=== PATIENT | male | born 1950 | race Caucasian/White ===

== ENCOUNTER → 2016-08-05 | Day surgery (SDC) | payer OTHER ==
[2016-07-29 14:07] VITALS: BMI 25.3
[~2016-08-05] MED LIST: ALPRAZolam 0.25 MG TAB PO PRN; ALPRAZolam 0.5 MG TAB PO PRN; AMLODIPINE BESYLATE PO SCH; ASPIRIN 325 MG TAB PO STA; ASPIRIN 81 MG CHEW PO SCH; ATORVASTATIN 80 MG TAB PO STA; BENAZEPRIL PO SCH; DIAZEPAM 20 MG PO SCH; DOXAZOSIN 1 MG TAB PO SCH; HEPARIN SODIUM 1,000 UNIT/ML VIAL IV ONE; IOHEXOL 350 MG/ML 125ML BOTTLE INJ ONE; LEVOTHYROXINE 25 MCG TAB PO SCH; LIDOCAINE 2% INJ 20 MG/ML SQ ONE; NITROGLYCERIN SL TABS 0.4 MG TAB SUBLINGUAL PRN; RX INFO: IV CONTRAST WAS GIVEN 1 EACH MISC MISCELLANE PRN; SODIUM CHLORIDE 0.9% 1,000 ML IV SCH; SODIUM CHLORIDE 0.9% 1,000 ML in EMPTY BAG 1 BAG IV ONE; TAMSULOSIN 0.4 MG CAP.ER.24H PO SCH; VERAPAMIL SYRINGE (5 MG/10 ML) INTRAARTER ONE; fentaNYL (PF) 50 MCG/ML 2 ML AMP IV ONE; oxyCODONE-APAP 10-325MG 1 EACH TAB PO PRN
[2016-08-05 06:21] VITALS: RESP 18
[2016-08-05 06:34] LABS: Basophils % (A) 0 %; CH 33.3; CHCM 34.7; Eosinophils # (A) 0.1 k/uL (0-0.7); Eosinophils % (A) 1 %; HCT 41.3 % (39.0-53.0); HDW 2.53; HGB 14.2 gm/dL (13.0-17.5); Luc # (Auto) 0.22; Luc % (Auto) 3; Lymphocytes # (A) 2.1 k/uL (1.0-4.8); Lymphocytes % (A) 26 %; MCH 33.2 pg (25.0-35.0); MCHC 34.4 g/dL (31.0-37.0); MCV 96.6 fL (80.0-100.0); Mean Platelet Volume 6.9; Monocytes # (A) 0.6 k/uL (0-1.0); Monocytes % (A) 7 %; Neutrophils # (A) 5.2 k/uL (1.3-7.7); Neutrophils % (A) 63 %; RBC 4.28 m/uL (4.30-5.90); RDW 13.1 % (11.5-15.5); WBC 8.3 k/uL (3.8-10.6)
[2016-08-05 06:44] LABS: Anion Gap 8 mmol/L; Blood Urea Nitrogen 24 mg/dL (9-20); Calcium 9.7 mg/dL (8.4-10.2); Carbon Dioxide 23 mmol/L (22-30); Chloride 109 mmol/L (98-107); Glucose 90 mg/dL (74-99); Non-African American GFR(MDRD) >60 (>60 ml/min/1.73 sqM); Potassium 4.2 mmol/L (3.5-5.1); Sodium 140 mmol/L (137-145)
--- NOTE | 2016-08-05 08:03 | CC ---
DATE OF SERVICE: Mr. Cuello is a 66-year-old male with known history of hypertension, family history of coronary artery disease, who recently underwent myocardial perfusion imaging when he had runs of non-sustained VT and he had a inferolateral wall defect. In view of that, recommendation was made regarding cardiac catheterization. The procedure as well as the risks and complications were discussed with the patient who is in full understanding and agreement. PROCEDURE: The patient was brought to the stores laborer in a fasting semi-sedated state after receiving fentanyl and Benadryl and achieving moderate conscious sedation state. Using Xylocaine anesthesia and Seldinger technique, a 6 Stateless sheath was introduced in the right radial artery. Selective right and left coronary angiography was performed using 5 Stateless, 3-1/2 Bend right and left Renetta catheters. Multiple views of the coronary arteries including hemiaxial views were obtained. Following that, a 5 Stateless tight pigtail catheter was introduced in the left ventricle and pressures were calculated. Following that, catheter was removed. Images were reviewed. Of note, the patient received 4000 units of intravenous heparin as well as intra-arterial verapamil. FINDINGS: FLUOROSCOPY: There is calcification involving the 3 coronary arteries. LEFT MAIN: This is a short-sized vessel bifurcating into left circumflex, left anterior descending artery. Left main coronary artery is without any evidence of high-grade stenosis. LEFT ANTERIOR DESCENDING ARTERY: This is a large-size vessel reaching to the apex with a wrap around apex segment, giving rise to a proximal diagonal branch. The left anterior descending artery has mild intimal disease in the mid segment of 10% to 20% without any evidence of high-grade stenosis. LEFT CIRCUMFLEX: This is a nondominant vessel, giving rise to 2 obtuse marginal branch of large caliber. The left circumflex as well as branches have no evidence of obstructive coronary artery disease. RIGHT CORONARY ARTERY: This is a large dominant vessel, bifurcating distally to PDA and posterolateral segment and branches. The right coronary artery has mild intimal disease in the proximal and mid segment of 20% without any evidence of high-grade stenosis. LEFT VENTRICULOGRAM: Left ventriculogram was not performed. HEMODYNAMICS: There was no gradient across the aortic valve. The left ventricular end-diastolic pressure was 12 mmHg. CONCLUSION: 1. Calcified coronary arteries. 2. Mild coronary artery disease involving the left anterior descending artery and right coronary artery. 3. Normal left ventricular end-diastolic pressure. RECOMMENDATIONS: In view of finding anatomy, I recommend to continue medical therapy with aggressive coronary risk modifications that have been initiated. Those findings and recommendations were discussed with the patient and his family and they are in full understanding and agreement. DURATION OF PROCEDURE: 16 minutes.
--- NOTE | 2016-08-05 08:06 | LTR ---
August 05, 2016 VANDANA CUI DO RE: CuateMarvin Dear Dr. Cui: I had the opportunity to perform cardiac catheterization on Mr. Cuello at [facility] on the july and a full copy of the procedure note will be forwarded to you. In brief, he was found to have mild intimal disease without any evidence of high-grade stenosis and based on those findings, I recommend to continue medical therapy with aggressive coronary risk modification has been initiated. I thank you again for allowing me the opportunity to participate in his care. Please feel free to call for any questions. Sincerely yours, SUNNY LO MD
[2016-08-05 13:23] VITALS: BP 119/58; PULSE 56
[2016-08-05 14:09] VITALS: TEMP 98
== END | disposition home or self-care (01) ==
LOC: CATHCVL 06:02
PROVIDERS: ATTEND Internal Medicine Interventional Cardiology
DX: I25.10 Atherosclerotic heart disease of native coronary artery without angina pectoris (principal); I25.84 Coronary atherosclerosis due to calcified coronary lesion; I10 Essential (primary) hypertension; Z82.49 Family history of ischemic heart disease and other diseases of the circulatory system; I49.3 Ventricular premature depolarization; I35.1 Nonrheumatic aortic (valve) insufficiency; Z79.82 Long term (current) use of aspirin; Z79.899 Other long term (current) drug therapy; Z88.5 Allergy status to narcotic agent
CPT/HCPCS: 93458; 80048; 85025; 99152; C1894; C1769; J2001; J3010; J1644; Q9967

== ENCOUNTER → 2017-08-12 | Outpatient (CLI) | payer MEDICARE, OTHER ==
--- NOTE | 2017-08-12 09:03 | US ---
EXAMINATION TYPE: US duplex aorta DATE OF EXAM: 08/12/2017 COMPARISON: NONE CLINICAL HISTORY: I71.4 Abdominal Aortic Aneurysm. Screening EXAM MEASUREMENTS: Abdominal Aorta: Proximal: 2.1 x 2.1cm Mid: 1.9 x 1.9cm Distal: 2.0 x 2.1cm Bifurcation: RT: 1.0 x 0.9cm LT: 1.0 x 0.9cm Visualized portions show no evidence of AAA at this time. Calcifications noted. *Incidental finding: multiple cystic areas within liver, largest = 4.9 x 4.5 x 5.3cm IMPRESSION: 1. Ultrasound is negative for screening for abdominal aortic aneurysm. Minimal fusiform prominence di stal abdominal aorta compared to the mid abdominal aorta is noted. 2. Incidental note is made of simple appearing cysts within the liver.
--- NOTE | 2017-08-12 09:04 | US ---
EXAMINATION TYPE: US carotid duplex BILAT DATE OF EXAM: 08/12/2017 COMPARISON: NONE CLINICAL HISTORY: I73.9 Peripheral. Peripheral vascular disease EXAM MEASUREMENTS: RIGHT: Peak Systolic Velocity (PSV) cm/sec ----- Right CCA: 95.2 ----- Right ICA: 111.7 ----- Right ECA: 110.6 ICA/CCA ratio: 1.2 RIGHT: End Diastole cm/sec ----- Right CCA: 22.6 ----- Right ICA: 21.5 ----- Right ECA: 19.3 LEFT: Peak Systolic Velocity (PSV) cm/sec ----- Left CCA: 109.5 ----- Left ICA: 89.7 ----- Left ECA: 94.1 ICA/CCA ratio: 0.8 LEFT: End Diastole cm/sec ----- Left CCA: 28.0 ----- Left ICA: 16.0 ----- Left ECA: 21.5 VERTEBRALS (direction of flow): Right Vertebral: Antegrade Left Vertebral: Antegrade Rhythm: Normal Mild plaque bilateral bifurcations. No evidence of significant stenosis Mild intimal thickening is present bilaterally. IMPRESSION: 1. Atheromatous plaquing without significant flow-limiting stenosis. Criteria for Assigning % of Stenosis / Diameter reduction (Estimation based on the indirect measurements of the internal carotid artery velocities (ICA PSV). 1. Normal (no stenosis)=ICA PSV < 125 cm/s: ratio < 2.0: ICA EDV<40 cm/s. 2. Less than 50% stenosis=ICA PSV < 125 cm/s: ratio < 2.0: ICA EDV<40 cm/s. 3. 50 to 69% stenosis=ICA PSV of 125 to 230 cm/s: ration 2.0 ? 4.0: ICA EDV 40-100 cm/s. 4. Greater than 70% stenosis to near occlusion= ICA PSV > 230 cm/s: ratio > 4.0: ICA EDV > 100 cm/s. 5. Near occlusion= ICA PSV velocities may be low or undetectable: variable ratio and ICA EDV. 6. Total occlusion=unable to detect flow.
== END | disposition home or self-care (01) ==
LOC: RADUSWWP 08:07
PROVIDERS: ATTEND Family Medicine
DX: I65.23 Occlusion and stenosis of bilateral carotid arteries (principal); I71.4 Abdominal aortic aneurysm, without rupture
CPT/HCPCS: 93880; 93979

== ENCOUNTER → 2018-02-13 | Outpatient (CLI) | payer MEDICARE, OTHER ==
[~2018-02-13] MED LIST changes: -ALPRAZolam 0.25 MG TAB PO PRN; -ALPRAZolam 0.5 MG TAB PO PRN; -AMLODIPINE BESYLATE PO SCH; -ASPIRIN 325 MG TAB PO STA; -ASPIRIN 81 MG CHEW PO SCH; -ATORVASTATIN 80 MG TAB PO STA; -BENAZEPRIL PO SCH; -DIAZEPAM 20 MG PO SCH; -DOXAZOSIN 1 MG TAB PO SCH; -HEPARIN SODIUM 1,000 UNIT/ML VIAL IV ONE; -IOHEXOL 350 MG/ML 125ML BOTTLE INJ ONE; -LEVOTHYROXINE 25 MCG TAB PO SCH; -LIDOCAINE 2% INJ 20 MG/ML SQ ONE; -NITROGLYCERIN SL TABS 0.4 MG TAB SUBLINGUAL PRN; -RX INFO: IV CONTRAST WAS GIVEN 1 EACH MISC MISCELLANE PRN; -SODIUM CHLORIDE 0.9% 1,000 ML IV SCH; -SODIUM CHLORIDE 0.9% 1,000 ML in EMPTY BAG 1 BAG IV ONE; +SODIUM CHLORIDE 0.9% 500 ML 500 ML in EMPTY BAG 1 BAG IV PRN; -TAMSULOSIN 0.4 MG CAP.ER.24H PO SCH; -VERAPAMIL SYRINGE (5 MG/10 ML) INTRAARTER ONE; +ZOLEDRONIC ACID 5 MG in SODIUM CHLORIDE 0.9% 100 ML IV ONE; -fentaNYL (PF) 50 MCG/ML 2 ML AMP IV ONE; -oxyCODONE-APAP 10-325MG 1 EACH TAB PO PRN
[2018-02-13 10:00] VITALS: BP 148/73; PULSE 68; RESP 16; TEMP 97.8
== END ==
LOC: PROCWHC3 09:46
PROVIDERS: ATTEND Family Medicine
DX: M81.0 Age-related osteoporosis without current pathological fracture (principal)
CPT/HCPCS: 96365; J3489

== ENCOUNTER → 2019-05-21 | Outpatient (CLI) | payer MEDICARE, OTHER ==
--- NOTE | 2019-05-21 09:59 | MR ---
EXAMINATION TYPE: MR ankle LT wo con DATE OF EXAM: 05/21/2019 COMPARISON: Left ankle x-ray September 18, 2018 HISTORY: Left ankle pain, unspecified injury of the Achilles tendon. Standard multiplanar, multisequence MRI departmental protocol Multiplanar, multisequence images of the left ankle were acquired. Diffusion weighted imaging was per formed. FINDINGS: There is heterogeneous roughly 4 cm proximal to the insertion on the posterior superior alysia caneus. There is thickening up to 12 mm AP diameter at this level. There is however intact tendon fib ers seen through the calcaneus without gap. Visualized portion of plantar fascia is within normal limits. The peroneus tendons are intact with some areas of increased signal along course of the peroneus brev is tendon. No full-thickness tear is evident or surrounding fluid is evident. The flexor tendons leti g posterior medial aspect of the ankle are intact. Some fluid surrounds the posterior tibial tendon a nterior calcaneal level for reference axial images 15 through 17. Extensor tendons anteriorly are int act. The anterior tibiofibular and anterior talofibular ligaments are intact. The medial deltoid ligament is intact. Ankle mortise symmetry is preserved. Slightly more prominent fat posterior medial ankle axial image 6 with local mass effect adjacent to t he inferior anterior aspect calcaneus is suspicious for focal subcutaneous lipoma measuring 3.5 x 1.6 cm axial image 6. [id number] diffuse subcutaneous edema slightly more prominent laterally versus medially without soft tissue swelling. Some edema extends into the sinus tarsi. Bone marrow signal intensity fairly w ell preserved without suspicious edema. Lisfranc joints are maintained. Mild to moderate narrowing wi th mild spurring throughout the hindfoot and midfoot articulations is present. IMPRESSION: 1. Partial tear of the Achilles tendon as detailed above. 2. Posterior tibial tendon tenosynovitis. 3. Tendinosis of the peroneus brevis tendon without tear. 4. Mild to moderate hindfoot and midfoot osteoarthropathy. Mild to moderate diffuse subcutaneous lluvia a without significant soft tissue swelling. 5. Probable 3.5 cm medial lipoma with local mass effect dorsal medial anterior hindfoot level.
== END | disposition home or self-care (01) ==
LOC: RADMRIMAIN 07:34
PROVIDERS: ATTEND Physician Assistant
DX: S86.012A Strain of left Achilles tendon, initial encounter (principal); M65.862 Other synovitis and tenosynovitis, left lower leg; M67.874 Other specified disorders of tendon, left ankle and foot; M19.072 Primary osteoarthritis, left ankle and foot

== ENCOUNTER → 2019-09-07 | Outpatient (CLI) | payer MEDICARE, OTHER | END | disposition home or self-care (01) | LOC: LABWHC1 10:03 | PROVIDERS: ATTEND Family Medicine | DX: R05 Cough (principal); R43.8 Other disturbances of smell and taste ==

== ENCOUNTER 2020-09-02 07:25 | Day surgery (SDC) | payer MEDICARE, OTHER ==
[2020-08-29 09:00] VITALS: BMI 25.3
[~2020-09-02 07:25] MED LIST changes: +LIDOCAINE 1% (10MG/ML) FOR IV START INTRADERMA PRN; -SODIUM CHLORIDE 0.9% 500 ML 500 ML in EMPTY BAG 1 BAG IV PRN; -ZOLEDRONIC ACID 5 MG in SODIUM CHLORIDE 0.9% 100 ML IV ONE
[2020-09-02 08:16] VITALS: RESP 16; TEMP 98.3
[2020-09-02] MEDS: LACTATED RINGERS 1,000 ML IV SCH ×2 (08:19→09:00)
[2020-09-02] MEDS ORDERED: PROPOFOL 10 MG/ML 20 ML VIAL IV ONE (09:02)
--- NOTE | 2020-09-02 09:05 | P.GSHP ---
History of Present Illness H&P Date: 09/02/20 Chief Complaint: Colon cancer screening patient here today for colonoscopy. Patient with personal history of colon polyps. Last colonoscopy 3-5 years ago with poor prep. No bowel complaints. No family history of colon cancer. Past Medical History Past Medical History: Hypertension, Osteoarthritis (OA), Prostate Disorder, Thyroid Disorder, Vascular Disorder Additional Past Medical History / Comment(s): chronic back pain, PAD., BPH., Hemorrhoids., states he sprained his ankle and has a splint and angel wrap on. History of Any Multi-Drug Resistant Organisms: None Reported Past Surgical History: Back Surgery, Cholecystectomy, Heart Catheterization, Hernia Repair, Orthopedic Surgery Additional Past Surgical History / Comment(s): left eye removed, evans knees arthroscopy, evans shoulder sx Past Anesthesia/Blood Transfusion Reactions: Previous Problems w/ Anesthesia Additional Past Anesthesia/Blood Transfusion Reaction / Comment(s): states has woke up during surgery Past Psychological History: No Psychological Hx Reported Smoking Status: Former smoker Past Alcohol Use History: None Reported Additional Past Alcohol Use History / Comment(s): smoked less than 1/2 ppd in the Past Drug Use History: None Reported - Past Family History Brother(s) Family Medical History: Cancer Additional Family Medical History / Comment(s): brain cancer, prostate cancer Father Additional Family Medical History / Comment(s): pts grandfather = colon cancer Mother Family Medical History: Renal Disease Medications and Allergies Home Medications Medication Instructions Recorded Confirmed Type Aspirin [Adult Low Dose Aspirin EC] 81 mg PO DAILY 07/29/16 09/02/20 History Diazepam [Valium] 10 mg PO BID 07/29/16 09/02/20 History Levothyroxine Sodium [Synthroid] 12.5 mcg PO DAILY 07/29/16 09/02/20 History Tamsulosin HCl [Flomax] 0.4 mg PO DAILY 07/29/16 09/02/20 History amLODIPine BESYLATE/BENAZEPRIL 1 cap PO DAILY 07/29/16 09/02/20 History [Lotrel 10-40 mg Capsule] Atorvastatin [Lipitor] 40 mg PO DAILY 08/29/20 09/02/20 History Allergies Allergy/AdvReac Type Severity Reaction Status Date / Time morphine Allergy Itching Verified 08/29/20 08:37 Surgical - Exam Vital Signs Temp Pulse Resp BP Pulse Ox 98.3 F 77 16 146/79 96 09/02/20 08:14 09/02/20 08:14 09/02/20 08:14 09/02/20 08:14 09/02/20 08:14 Physical exam: General: Well-developed, well-nourished HEENT: Normocephalic, sclerae nonicteric Abdomen: Nontender, nondistended Extremities: No edema Neuro: Alert and oriented Assessment and Plan (1) Colon cancer screening Narrative/Plan: Will proceed with colonoscopy at this time Current Visit: Yes Status: Acute Code(s): Z12.11 - ENCOUNTER FOR SCREENING FOR MALIGNANT NEOPLASM OF COLON SNOMED Code(s): 291019310
--- NOTE | 2020-09-02 09:29 | P.PCN ---
Date of Procedure: 09/02/20 Procedure(s) Performed: PREOPERATIVE DIAGNOSIS: Colon cancer screening, history of polyps POSTOPERATIVE DIAGNOSIS: Multiple ascending colon polyps, diverticulosis PROCEDURE: Colonoscopy with snare polypectomy and clip placement ANESTHESIA: MAC SURGEON: Praveen Craven M.D. SPECIMENS: Multiple ascending colon polyps ENDOSCOPIC PROCEDURE: The patient was placed on the endoscopy table in the left decubitus position. The Olympus colonoscope was inserted into the anus and passed under direct visualization to the base of the cecum. The appendiceal orifice was visualized. From that point the scope was slowly withdrawn inspecting all surfaces carefully. There were no neoplastic inflammatory or polypoid lesions at the base of the cecum. In the ascending colon there were 5 polyps noted. These were all removed using the snare with cautery technique. 2 of these were removed in a piecemeal fashion. The remainder of the transverse descending sigmoid and rectum was free of any neoplastic inflammatory or polypoid lesions. The patient's prep was still slightly suboptimal. The patient had mild scattered diverticulosis. Digital rectal examination was normal. The patient was taken to the recovery room in stable condition per anesthesia guidelines. RECOMMENDATIONS: Resume diet. Await biopsy results. Will require short-term follow-up colonoscopy 2 years. Will need 2 day prep.
[2020-09-02 09:46] VITALS: BP 149/96; PULSE 65
== END 2020-09-02 10:10 | disposition home or self-care (01) ==
LOC: ORWHC2ENDO 07:25
PROVIDERS: ATTEND Surgery
DX: Z12.11 Encounter for screening for malignant neoplasm of colon (principal); D12.2 Benign neoplasm of ascending colon; K57.30 Diverticulosis of large intestine without perforation or abscess without bleeding; Z86.010 Personal history of colon polyps; I10 Essential (primary) hypertension; M19.90 Unspecified osteoarthritis, unspecified site; E07.9 Disorder of thyroid, unspecified; N40.0 Benign prostatic hyperplasia without lower urinary tract symptoms; I73.9 Peripheral vascular disease, unspecified; G89.29 Other chronic pain; R52 Pain, unspecified; K64.9 Unspecified hemorrhoids; S93.409D Sprain of unspecified ligament of unspecified ankle, subsequent encounter; Z90.49 Acquired absence of other specified parts of digestive tract; Z90.01 Acquired absence of eye; Z98.890 Other specified postprocedural states; Z87.891 Personal history of nicotine dependence; Z80.42 Family history of malignant neoplasm of prostate; Z80.8 Family history of malignant neoplasm of other organs or systems; Z80.0 Family history of malignant neoplasm of digestive organs; Z84.1 Family history of disorders of kidney and ureter; Z79.82 Long term (current) use of aspirin; Z79.890 Hormone replacement therapy; Z79.899 Other long term (current) drug therapy; Z88.5 Allergy status to narcotic agent
CPT/HCPCS: 88305; 45385; J2704; 45382

== ENCOUNTER → 2021-05-01 | Outpatient (CLI) | payer MEDICARE, OTHER ==
--- NOTE | 2021-05-01 18:03 | ECHOF ---
Referral Reason:I35.1 MEASUREMENTS -------- HEIGHT: 170.2 cm WEIGHT: 71.7 kg BP: RVIDd: 3.3 cm (< 3.3) IVSd: 1.2 cm (0.6 - 1.1) LVIDd: 4.7 cm (3.9 - 5.3) LVPWd: 1.3 cm (0.6 - 1.1) IVSs: 1.5 cm LVIDs: 3.1 cm LVPWs: 2.3 cm LAESV Index (A-L): 33.94 ml/m Ao Diam: 3.1 cm (2.0 - 3.7) AV Cusp: 2.0 cm (1.5 - 2.6) LA Diam: 4.5 cm (2.7 - 3.8) MV EXCURSION: 18.048 mm (> 18.000) MV EF SLOPE: 39 mm/s (70 - 150) EPSS: 0.2 cm MV E Chris: 0.40 m/s MV DecT: 472 ms MV A Chris: 0.61 m/s MV E/A Ratio: 0.66 AV maxP.75 mmHg AV meanP.91 mmHg AR PHT: 620 ms RAP: 5.00 mmHg RVSP: 30.63 mmHg FINDINGS -------- Sinus rhythm. This was a technically good study. The left ventricular size is normal. There is mild concentric left ventricular hypertrophy. Overa ll left ventricular systolic function is low-normal with, an EF between 50 - 55 %. The right ventricle is normal in size. LA is midly dilated 29-33ml/m2. The right atrial size is normal. There is mild aortic regurgitation. There is mild aortic stenosis present. Peak/mean gradient acr oss the Aortic Valve is 23.75mmHg / 9.91mmHg. Mild mitral regurgitation is present. Mild tricuspid regurgitation present. Right ventricular systolic pressure is normal at < 35 mmHg. There is no pulmonic regurgitation present. The aortic root size is normal. There is a trivial pericardial effusion present. Possible cyst in the liver CONCLUSIONS -------- 1. The left ventricular size is normal. 2. There is mild concentric left ventricular hypertrophy. 3. Overall left ventricular systolic function is low-normal with, an EF between 50 - 55 %. 4. The right ventricle is normal in size. 5. LA is midly dilated 29-33ml/m2. 6. The right atrial size is normal. 7. There is mild aortic regurgitation. 8. There is mild aortic stenosis present. 9. Peak/mean gradient across the Aortic Valve is 23.75mmHg / 9.91mmHg. 10. Mild mitral regurgitation is present. 11. Mild tricuspid regurgitation present. 12. The aortic root size is normal. 13. There is a trivial pericardial effusion present. 14. Possible cyst in the liver MANAGER GOLF: Ayala Tam RDCS
== END | disposition home or self-care (01) ==
LOC: RADECHMAIN 11:44
PROVIDERS: ATTEND Family Medicine
DX: I08.3 Combined rheumatic disorders of mitral, aortic and tricuspid valves (principal)
CPT/HCPCS: 93306

== ENCOUNTER → 2021-07-09 | Outpatient (CLI) | payer MEDICARE, OTHER ==
--- NOTE | 2021-07-09 12:19 | US ---
EXAMINATION TYPE: US venous doppler duplex LE DATE OF EXAM: 07/09/2021 11:49 AM COMPARISON: NONE CLINICAL HISTORY: R79.1 ABNORMAL COAGULATION PROFILE. History of hip replacement. abn labs, patients brother of clot and patient asked for testing to be done on him. SIDE PERFORMED: bilateral TECHNIQUE: The lower extremity deep venous system is examined utilizing real time linear array sonog lilo with graded compression, doppler sonography and color-flow sonography. VESSELS IMAGED: Common Femoral Vein Deep Femoral Vein Greater Saphenous Vein * Femoral Vein Popliteal Vein Small Saphenous Vein * Proximal Calf Veins (* superficial vessels) There is normal flow, compressibility, vascular waveforms. Right Leg: Negative for DVT Left Leg: Negative for DVT IMPRESSION: No evident deep venous thrombosis within the lower extremities from the level of the knee centrally
== END | disposition home or self-care (01) ==
LOC: RADUSWWP 11:23
PROVIDERS: ATTEND Family Medicine
DX: R79.1 Abnormal coagulation profile (principal); Z96.649 Presence of unspecified artificial hip joint
CPT/HCPCS: 93970

== ENCOUNTER 2021-08-04 10:35 | Emergency (ER) | payer MEDICARE, OTHER ==
[2021-08-04 11:04] VITALS: BP 131/72; PULSE 70; RESP 16; TEMP 97.8
[2021-08-04] MEDS ORDERED: OXYMETAZOLINE 0.05% NASL SPRAY 1 SPRAY BOTTLE NASAL STA (11:23)
--- NOTE | 2021-08-04 11:42 | ED ---
General Adult HPI - General Chief complaint: ENT Stated complaint: Nosebleed Time Seen by Provider: 08/04/21 11:11 Source: patient Mode of arrival: ambulatory Limitations: no limitations - History of Present Illness Initial comments: This 71-year-old male presents to the emergency department with on and off right sided nosebleed 5 days. Patient states he has had nosebleed 1-2 times a day for the last 5 days that last less than 10 minutes each. Patient denies any history of nosebleeds in his past. Patient states the nosebleed comes from the right nostril. Patient states he went to see his primary care provider yesterday afternoon where he used a cauterization stick for the nosebleed. Patient states he does have cauterization sticks at home which she did use one time this morning to stop the nosebleed, patient states that didn't work. Patient denies being on any blood thinners. Patient states he does have high blood pressure but states it has been in the 120s to 130s over 70s and 80s this week which is his baseline. Patient states last nosebleed was earlier this morning which stopped on its own after about 5 minutes. Patient states he does have an appointment with Dr. Bernal on August 19. Patient denies any hemoptysis, coughing or vomiting up blood. He denies any chest pain, shortness of breath, abdominal pain, nausea, vomiting, change in bowel or bladder, change in appetite, lightheadedness, dizziness, fever, change in vision, rash. - Related Data Home Medications Medication Instructions Recorded Confirmed Aspirin [Adult Low Dose Aspirin EC] 81 mg PO DAILY 07/29/16 08/04/21 Diazepam [Valium] 10 mg PO QID PRN 07/29/16 08/04/21 Levothyroxine Sodium [Synthroid] 12.5 mcg PO DAILY 07/29/16 08/04/21 Tamsulosin HCl [Flomax] 0.4 mg PO DAILY 07/29/16 08/04/21 amLODIPine BESYLATE/BENAZEPRIL 1 cap PO DAILY 07/29/16 08/04/21 [Lotrel 10-40 mg Capsule] Atorvastatin [Lipitor] 40 mg PO HS 08/29/20 08/04/21 Finasteride [Proscar] 5 mg PO DAILY 08/04/21 08/04/21 Ketorolac 0.5% Ophth Soln [Acular 1 drops BOTH EYES QID PRN 08/04/21 08/04/21 0.5%] Sulfamethox-Tmp 800-160Mg [Bactrim 1 tab PO Q12H 08/04/21 08/04/21 DS 800-160 mg] Allergies Allergy/AdvReac Type Severity Reaction Status Date / Time morphine Allergy Itching Verified 08/04/21 12:02 Review of Systems ROS Statement: Those systems with pertinent positive or pertinent negative responses have been documented in the HPI. ROS Other: All systems not noted in ROS Statement are negative. Past Medical History Past Medical History: Hypertension, Prostate Disorder, Thyroid Disorder Additional Past Medical History / Comment(s): chronic back pain History of Any Multi-Drug Resistant Organisms: None Reported Past Surgical History: Back Surgery, Heart Catheterization, Orthopedic Surgery Additional Past Surgical History / Comment(s): left eye removed, evans knees arthr oscopy, evans shoulder sx Past Anesthesia/Blood Transfusion Reactions: Previous Problems w/ Anesthesia Additional Past Anesthesia/Blood Transfusion Reaction / Comment(s): states has woke up during surgery Past Psychological History: Anxiety Smoking Status: Former smoker Past Alcohol Use History: None Reported Past Drug Use History: None Reported - Past Family History Brother(s) Family Medical History: Cancer Additional Family Medical History / Comment(s): brain cancer, prostate cancer Father Additional Family Medical History / Comment(s): pts grandfather = colon cancer Mother Family Medical History: Renal Disease General Exam Limitations: no limitations General appearance: alert, in no apparent distress Head exam: Present: atraumatic, normocephalic, normal inspection Eye exam: Present: normal appearance, PERRL, EOMI. Absent: scleral icterus, conjunctival injection, periorbital swelling Pupils: Present: normal accommodation ENT exam: Present: normal oropharynx (No active bleeding down the posterior oropharynx.), mucous membranes moist. Absent: normal exam (Patient with dried blood in right nostril. No active bleeding.) Neck exam: Present: full ROM. Absent: tenderness, meningismus, lymphadenopathy Respiratory exam: Present: normal lung sounds bilaterally. Absent: respiratory distress, wheezes, rales, rhonchi, stridor, chest wall tenderness Cardiovascular Exam: Present: regular rate, normal rhythm, normal heart sounds. Absent: systolic murmur, diastolic murmur, rubs, gallop, clicks GI/Abdominal exam: Present: soft, normal bowel sounds. Absent: distended, tenderness, guarding, rebound, rigid Extremities exam: Present: normal inspection, full ROM, normal capillary refill. Absent: tenderness, pedal edema, joint swelling, calf tenderness Back exam: Present: full ROM (Patient states he does have a history of chronic back issues). Absent: CVA tenderness (R), CVA tenderness (L) Neurological exam: Present: alert, oriented X3, CN II-XII intact Psychiatric exam: Present: normal affect, normal mood Skin exam: Present: warm, dry, intact, normal color. Absent: rash Course Vital Signs 08/04/21 11:02 Temperature 97.8 F Pulse Rate 70 Respiratory 16 Rate Blood Pressure 131/72 O2 Sat by Pulse 97 Oximetry Medical Decision Making - Medical Decision Making This 71-year-old male presents emergency department with episodic nosebleed 5 days. Patient states he has been experiencing a nosebleed 1-2 times a day lasting 5-10 mins for the last 5 days. Patient was seen by his primary care provider and was given cauterization sticks which she has been using. Patient without any active bleeding currently in the emergency department. Hemoglobin 13.5. Coagulation unremarkable. Afrin nasal spray administered 2 sprays in each nostril, clamp was applied. No active bleeding prior to discharge. No bleeding down posterior oropharynx present. I did offer to pack patient's right nare, however, patient states he had had that one time in this past and it causes him some much pain he had to have it removed by an urgent care the next day- therefore patient refused at this time and stated he would return if the bleeding returned and stated we could pack it then. Afrin nasal spray bottle given the patient and instructed him to use if needed- I informed him that he is only able to use 2 squirts in each nostril every 12 hours for maximum of 3 days. Nasal clamp given and patient. ENT follow-up given the patient and instructed to follow-up in next 1-2 days. Instructed patient to follow-up with his primary care provider next 1-2 days. Strict return precautions were discussed. Patient verbally agreed to plan. Patient sent home in stable condition. Case discussed in detail my attending, Dr. Yan. - Lab Data Result diagrams: 08/04/21 11:46 08/04/21 11:46 Lab Results 08/04/21 08/04/21 08/04/21 Range/Units 11:46 11:46 11:46 WBC 9.1 (3.8-10.6) k/uL RBC 4.05 L (4.30-5.90) m/uL Hgb 13.5 (13.0-17.5) gm/dL Hct 41.2 (39.0-53.0) % MCV 101.7 H (80.0-100.0) fL MCH 33.3 (25.0-35.0) pg MCHC 32.8 (31.0-37.0) g/dL RDW 15.4 (11.5-15.5) % Plt Count 173 (150-450) k/uL MPV 7.5 Neutrophils % 77 % Lymphocytes % 16 % Monocytes % 5 % Eosinophils % 0 % Basophils % 0 % Neutrophils # 7.0 (1.3-7.7) k/uL Lymphocytes # 1.4 (1.0-4.8) k/uL Monocytes # 0.4 (0-1.0) k/uL Eosinophils # 0.0 (0-0.7) k/uL Basophils # 0.0 (0-0.2) k/uL Macrocytosis Slight PT 9.7 (9.0-12.0) sec INR 0.9 (<1.2) APTT 20.9 L (22.0-30.0) sec Sodium 135 L (137-145) mmol/L Potassium 4.2 (3.5-5.1) mmol/L Chloride 107 (98-107) mmol/L Carbon Dioxide 25 (22-30) mmol/L Anion Gap 3 mmol/L BUN 21 H (9-20) mg/dL Creatinine 0.65 L (0.66-1.25) mg/dL Est GFR (CKD-EPI)AfAm >90 (>60 ml/min/1.73 sqM) Est GFR (CKD-EPI)NonAf >90 (>60 ml/min/1.73 sqM) Glucose 113 H (74-99) mg/dL Calcium 8.6 (8.4-10.2) mg/dL Disposition Clinical Impression: Right-sided nosebleed Disposition: HOME SELF-CARE Condition: Stable Instructions (If sedation given, give patient instructions): Nosebleed (ED) Additional Instructions: Please follow-up with ENT next 1-2 days. Follow-up with primary care provider next 1-2 days. Return to the emergency department if nosebleed returns or if any new, worsening or concerning symptoms arise. Is patient prescribed a controlled substance at d/c from ED?: No Referrals: Vu Cui DO [Primary Care Provider] - 1-2 days Colt Daugherty DO [Doctor of Osteopathic Medicine] - 1-2 days Time of Disposition: 13:11
[2021-08-04 12:05] LABS: Basophils % (A) 0 %; Eosinophils % (A) 0 %; HCT 41.2 % (39.0-53.0); HGB 13.5 gm/dL (13.0-17.5); Lymphocytes # (A) 1.4 k/uL (1.0-4.8); Lymphocytes % (A) 16 %; MCH 33.3 pg (25.0-35.0); MCHC 32.8 g/dL (31.0-37.0); MCV 101.7 fL (80.0-100.0); Macrocytosis Slight; Mean Platelet Volume 7.5; Monocytes # (A) 0.4 k/uL (0-1.0); Monocytes % (A) 5 %; Neutrophils % (A) 77 %; Platelet Count 173 k/uL (150-450); RBC 4.05 m/uL (4.30-5.90); RDW 15.4 % (11.5-15.5); WBC 9.1 k/uL (3.8-10.6)
[2021-08-04 12:17] LABS: Potassium 4.2 mmol/L (3.5-5.1)
[2021-08-04 12:18] LABS: African American GFR (CKD) >90 (>60 ml/min/1.73 sqM); Anion Gap 3 mmol/L; Blood Urea Nitrogen 21 mg/dL (9-20); Calcium 8.6 mg/dL (8.4-10.2); Carbon Dioxide 25 mmol/L (22-30); Chloride 107 mmol/L (98-107); Glucose 113 mg/dL (74-99); Non-African American GFR(CKD) >90 (>60 ml/min/1.73 sqM); Sodium 135 mmol/L (137-145)
[2021-08-04 12:33] LABS: INR 0.9 (<1.2); Prothrombin Time 9.7 sec (9.0-12.0)
[2021-08-04 13:03] LABS: Partial Thromboplastin Time 20.9 sec (22.0-30.0)
== END 2021-08-04 13:27 | disposition home or self-care (01) ==
LOC: EC 10:35
DX: R04.0 Epistaxis (principal); I10 Essential (primary) hypertension; E07.9 Disorder of thyroid, unspecified; Z88.5 Allergy status to narcotic agent; Z79.899 Other long term (current) drug therapy; Z79.82 Long term (current) use of aspirin; Z79.890 Hormone replacement therapy; Z87.891 Personal history of nicotine dependence
CPT/HCPCS: 36415; 80048; 85025; 85610; 85730; 99283

== ENCOUNTER → 2021-09-08 | Outpatient (CLI) | payer MEDICARE, OTHER ==
--- NOTE | 2021-09-08 10:41 | XR ---
EXAMINATION TYPE: XR ankle complete LT DATE OF EXAM: 09/08/2021 COMPARISON: MRI dated 05/21/2019 INDICATION: Pain with edema TECHNIQUE: 3 views of the left ankle FINDINGS: No definite acute fracture line identified. Tiny osteophytosis at the tip of the medial malleolus. Pr eserved ankle mortise with a smooth talar dome. Extensive arterial atherosclerotic calcifications. Scattered variable sized and shaped soft tissue ca lcifications. Tiny inferior calcaneal spur. No sizable ankle joint effusion. IMPRESSION: No definite acute fracture or dislocation identified. Other findings as described above.
== END ==
LOC: RADXRMAIN 08:32
PROVIDERS: ATTEND Family Medicine
DX: M25.572 Pain in left ankle and joints of left foot (principal); M77.31 Calcaneal spur, right foot

== ENCOUNTER → 2021-10-01 | Outpatient (CLI) | payer MEDICARE, OTHER ==
--- NOTE | 2021-10-01 10:14 | XR ---
EXAMINATION TYPE: XR shoulder complete RT DATE OF EXAM: 10/01/2021 9:12 AM INDICATION: Patient age:Male; 71 years old; Reason for study: M25.511 Right shoulder pain; COMPARISON: Right shoulder 02/14/2013. TECHNIQUE: The right shoulder was examined in AP, internally rotated and scapular Y projections. . FINDINGS: Postoperative changes demonstrated with an anchor visualized in the humeral head. No evidence of acut e osseous pathology, joint dislocation, or soft tissue swelling. The remaining portions of the visual ized chest are unremarkable. IMPRESSION: No acute osseous pathology.
== END | disposition home or self-care (01) ==
LOC: RADXRMAIN 08:51
PROVIDERS: ATTEND Family Medicine
DX: M25.511 Pain in right shoulder (principal)

== ENCOUNTER 2022-06-08 06:15 | Emergency (ER) | payer MEDICARE, OTHER ==
[2022-06-08 06:51] VITALS: RESP 18; TEMP 97.7
--- NOTE | 2022-06-08 07:07 | ED ---
Extremity Problem HPI - General Chief complaint: Recheck/Abnormal Lab/Rx Stated complaint: Post Op complications Time Seen by Provider: 06/08/22 06:51 Source: patient, RN notes reviewed Mode of arrival: ambulatory Limitations: no limitations - History of Present Illness Initial comments: This is a 71-year-old male who presents to the emergency department for right leg pain. 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 Gilmore on 05/28. He followed up with his primary care provider a few days later and told him about an ulcer on the bottom of his right pinky toe. This had been doing better and he was able to debride it on his own. His primary care provider started him on antibiotics. Patient states that [facility], and they put him in a cast. Patient wants it removed. States that he was unable to sleep all night due to the pain from the cast and is worried that it is cutting off his blood flow. He does have a follow-up with Dr. Gilmore at 11 AM today and believes that he will also want this off. Denies any fevers, chills, sore throat, cough, dyspnea, chest pain, palpitations, abdominal pain, nausea, vomiting, diarrhea, back pain, or headaches. MD Complaint: extremity pain Location: right, lower extremity - Related Data Home Medications Medication Instructions Recorded Confirmed Aspirin [Adult Low Dose Aspirin EC] 81 mg PO DAILY 07/29/16 05/28/22 Levothyroxine Sodium [Synthroid] 12.5 mcg PO DAILY 07/29/16 05/28/22 Tamsulosin HCl [Flomax] 0.4 mg PO DAILY 07/29/16 05/28/22 amLODIPine BESYLATE/BENAZEPRIL 1 cap PO DAILY 07/29/16 05/28/22 [Lotrel 10-40 mg Capsule] diazePAM [Valium] 10 mg PO QID PRN 07/29/16 05/28/22 Atorvastatin [Lipitor] 40 mg PO HS 08/29/20 05/28/22 Finasteride [Proscar] 5 mg PO DAILY 08/04/21 05/28/22 Previous Rx's Medication Instructions Recorded Clopidogrel [Plavix] 75 mg PO DAILY 90 Days #90 tablet 05/28/22 Allergies Allergy/AdvReac Type Severity Reaction Status Date / Time morphine Allergy Itching Verified 06/08/22 06:47 Review of Systems ROS Statement: Those systems with pertinent positive or pertinent negative responses have been documented in the HPI. ROS Other: All systems not noted in ROS Statement are negative. Past Medical History Past Medical History: Hypertension, Prostate Disorder, Thyroid Disorder Additional Past Medical History / Comment(s): chronic back pain History of Any Multi-Drug Resistant Organisms: None Reported Past Surgical History: Back Surgery, Heart Catheterization, Orthopedic Surgery Additional Past Surgical History / Comment(s): left eye removed, evans knees arthroscopy, evans shoulder sx Past Anesthesia/Blood Transfusion Reactions: Previous Problems w/ Anesthesia Additional Past Anesthesia/Blood Transfusion Reaction / Comment(s): states has woke up during surgery Past Psychological History: Anxiety Smoking Status: Former smoker Past Alcohol Use History: None Reported Past Drug Use History: None Reported - Past Family History Brother(s) Family Medical History: Cancer Additional Family Medical History / Comment(s): brain cancer, prostate cancer Father Family Medical History: CVA/TIA Additional Family Medical History / Comment(s): pts grandfather = colon cancer Mother Family Medical History: Renal Disease General Exam Limitations: no limitations General appearance: alert, in no apparent distress Head exam: Present: atraumatic, normocephalic, normal inspection Respiratory exam: Present: normal lung sounds bilaterally. Absent: respiratory distress, wheezes, rales, rhonchi, stridor Cardiovascular Exam: Present: regular rate, normal rhythm, normal heart sounds. Absent: systolic murmur, diastolic murmur, rubs, gallop, clicks Extremities exam: Present: other (Right foot is warm and well perfused with 2+ DP and PT pulses and capillary refill less than 1 second.) Neurological exam: Present: alert, oriented X3, CN II-XII intact Psychiatric exam: Present: normal affect, normal mood Skin exam: Present: warm, dry, intact, normal color. Absent: rash Course Vital Signs 06/08/22 06/08/22 06:48 07:51 Temperature 97.7 F Pulse Rate 74 64 Respiratory 18 18 Rate Blood Pressure 100/62 129/67 O2 Sat by Pulse 98 97 Oximetry Medical Decision Making - Medical Decision Making This is a 71-year-old male who presents to the emergency department for right lower extremity pain. Was pt. sent in by a medical professional or institution? @ -No Did you speak to anyone other than the patient for history? @ -No Did you review nursing and triage notes? @ -Yes, and I agree, it is accurate with regards to the patient's symptoms. Were old charts reviewed? @ -No Differential Diagnosis? @ -Not applicable What testing was considered but not performed? (CT, X-rays, U/S, labs)? Why? @ -None What meds were considered but not given? Why? @ -None Did you discuss the management of the patient with other professionals? @ -No Did you reconcile home meds? @ -No Was smoking cessation discussed for >3mins.? @ -No Was critical care preformed (if so, how long)? @ -No Were there social determinants of health that impacted care today? How? (Homelessness, low income, unemployed, alcoholism, drug addiction, transportation, low edu. Level, literacy, decrease access to med. care, halfway, rehab)? @ -No Was there de-escalation of care discussed even if they declined? (Discuss DNR or withdrawal of care, Hospice)? @ -No What co-morbidities impacted this encounter? (DM, HTN, Smoking, COPD, CAD, Cancer, CVA, Hep., AIDS, mental health diagnosis, sleep apnea, morbid obesity)? @ -Vascular disease Was patient admitted / discharged? @ -Discharged. Patient appeared to have some sort of hard cast or dressing on his leg. This may have been some sort of Unna boot for management of the ulcer. This was removed with a cast cutter. On examination of the leg, patient had no evidence of ischemia. He had palpable pulses and capillary refill with good coloration. Patient felt significant improvement after having this removed. The ulcer on his foot was well wrapped. Patient discharged home in stable co ndition. He will follow up with Dr. Gilmore at 11 AM today as scheduled. Undiagnosed new problem with uncertain prognosis? @ -None Drug Therapy requiring intensive monitoring for toxicity (Heparin, Nitro, Insulin, Cardizem)? @ -None Were any procedures done? @ -None Diagnosis/symptom? @ -Right leg pain, right toe ulcer Acute, or Chronic, or Acute on Chronic? @ -Acute Uncomplicated (without systemic symptoms) or Complicated (systemic symptoms)? @ -Uncomplicated Side effects of treatment? @ -None Exacerbation, Progression, or Severe Exacerbation] @ -Not applicable Poses a threat to life or bodily function? @ -No Return precautions reviewed in depth, the patient is instructed to return to the emergency department with any new, worsening, or concerning symptoms. Patient verbalized understanding. This case was discussed in detail with the attending ED physician, Dr. Yan. Presentation, findings, and treatment plan discussed in detail as well. Disposition Clinical Impression: Right foot pain, Ulcer of toe Disposition: HOME SELF-CARE Instructions (If sedation given, give patient instructions): Chronic Wounds (ED) Additional Instructions: Return to the emergency department with any new, worsening, or concerning symptoms. Follow up with Dr. Gilmore as scheduled today. Is patient prescribed a controlled substance at d/c from ED?: No Referrals: Vu Cui DO [Primary Care Provider] - 1-2 days
[2022-06-08 07:56] VITALS: BP 129/67; PULSE 64
== END 2022-06-08 08:10 | disposition home or self-care (01) ==
LOC: EC 06:15
DX: L97.519 Non-pressure chronic ulcer of other part of right foot with unspecified severity (principal); I10 Essential (primary) hypertension; E07.9 Disorder of thyroid, unspecified; F41.9 Anxiety disorder, unspecified; Z79.82 Long term (current) use of aspirin; Z79.890 Hormone replacement therapy; Z79.899 Other long term (current) drug therapy; Z87.891 Personal history of nicotine dependence
CPT/HCPCS: 99283

== ENCOUNTER 2022-07-14 10:18 | Emergency (ER) | payer MEDICARE, OTHER ==
--- NOTE | 2022-07-14 11:06 | ED ---
General Adult HPI - General Chief complaint: Recheck/Abnormal Lab/Rx Stated complaint: Eye issue Time Seen by Provider: 07/14/22 10:58 Source: patient, RN notes reviewed, old records reviewed Mode of arrival: ambulatory Limitations: no limitations - History of Present Illness Initial comments: 72-year-old male presents for evaluation of yellowing of the right eye. Patient has a prosthesis for the left eye. He denies pain. Denies injury. Denies any history of liver disease. Denies alcohol use. Complains only of yellowing of the right eye. - Related Data Home Medications Medication Instructions Recorded Confirmed Aspirin [Adult Low Dose Aspirin EC] 81 mg PO DAILY 07/29/16 07/14/22 Levothyroxine Sodium [Synthroid] 12.5 mcg PO DAILY 07/29/16 07/14/22 Tamsulosin HCl [Flomax] 0.4 mg PO DAILY 07/29/16 07/14/22 amLODIPine BESYLATE/BENAZEPRIL 1 cap PO DAILY 07/29/16 07/14/22 [Lotrel 10-40 mg Capsule] diazePAM [Valium] 10 mg PO QID PRN 07/29/16 07/14/22 Atorvastatin [Lipitor] 40 mg PO HS 08/29/20 07/14/22 Finasteride [Proscar] 5 mg PO DAILY 08/04/21 07/14/22 Docusate [Colace] 100 mg PO BID 07/14/22 07/14/22 HYDROcodone/APAP 5-325MG [[place] 1 tab PO TID PRN 07/14/22 07/14/22 5-325] Ondansetron Odt [Zofran Odt] 4 mg PO Q6H PRN 07/14/22 07/14/22 Previous Rx's Medication Instructions Recorded Clopidogrel [Plavix] 75 mg PO DAILY 90 Days #90 tablet 05/28/22 Allergies Allergy/AdvReac Type Severity Reaction Status Date / Time morphine Allergy Itching Verified 07/14/22 12:02 Review of Systems ROS Statement: Those systems with pertinent positive or pertinent negative responses have been documented in the HPI. ROS Other: All systems not noted in ROS Statement are negative. Past Medical History Past Medical History: Hypertension, Prostate Disorder, Thyroid Disorder Additional Past Medical History / Comment(s): chronic back pain History of Any Multi-Drug Resistant Organisms: None Reported Past Surgical History: Back Surgery, Heart Catheterization, Orthopedic Surgery Additional Past Surgical History / Comment(s): left eye removed, evans knees arthroscopy, evans shoulder sx Past Anesthesia/Blood Transfusion Reactions: Previous Problems w/ Anesthesia Additional Past Anesthesia/Blood Transfusion Reaction / Comment(s): states has woke up during surgery Past Psychological History: Anxiety Smoking Status: Former smoker Past Alcohol Use History: None Reported Past Drug Use History: None Reported - Past Family History Brother(s) Family Medical History: Cancer Additional Family Medical History / Comment(s): brain cancer, prostate cancer Father Family Medical History: CVA/TIA Additional Family Medical History / Comment(s): pts grandfather = colon cancer Mother Family Medical History: Renal Disease General Exam Limitations: no limitations General appearance: alert, in no apparent distress Head exam: Present: atraumatic, normocephalic Eye exam: Present: EOMI, scleral icterus. Absent: PERRL (Right eye: equal round reactive to light) ENT exam: Present: normal exam Cardiovascular Exam: Present: regular rate, normal rhythm GI/Abdominal exam: Present: soft. Absent: distended, tenderness, guarding Extremities exam: Present: normal inspection, normal capillary refill Neurological exam: Present: alert, oriented X3 Psychiatric exam: Present: normal affect, normal mood Skin exam: Present: warm, dry, intact Course Vital Signs 07/14/22 10:33 Temperature 97.9 F Pulse Rate 63 Respiratory 20 Rate Blood Pressure 106/62 O2 Sat by Pulse 97 Oximetry Medical Decision Making - Medical Decision Making Was pt. sent in by a medical professional or institution (, PA, TYRE RET[employer]ER, urgent care, hospital, or [place] [facility] facility...) When possible be specific @ -No Did you speak to anyone other than the patient for history (EMS, parent, family, police, friend...)? What history was obtained from this source @ -No Did you review nursing and triage notes (agree or disagree)? Why? @ -I reviewed and agree with nursing and triage notes Were old charts reviewed (outside hosp., previous admission, EMS record, old EKG, old radiological studies, urgent care reports/EKG's, [place] health care facility records)? Report findings @ -No old charts were reviewed Differential Diagnosis (chest pain, altered mental status, abdominal pain women, abdominal pain men, vaginal bleeding, weakness, fever, dyspnea, syncope, headache, dizziness, GI bleed, back pain, seizure, CVA, palpatations, mental health, musculoskeletal)? @ -Liver failure, scleral icterus, hyperbilirubinemia EKG interpreted by me (3pts min.). @ -As above X-rays interpreted by me (1pt min.). @ -None done CT interpreted by me (1pt min.). @ -None done U/S interpreted by me (1pt. min.). @ -None done What testing was considered but not performed or refused? (CT, X-rays, U/S, labs)? Why? @ -None What meds were considered but not given or refused? Why? @ -None Did you discuss the management of the patient with other professionals (professionals i.e. , PA, TYRE RETREADER, lab, RT, psych nurse, social insurance administrator, log yard manager, teacher, business practices officer, case briefer)? Give summary @ -No Was smoking cessation discussed for >3mins.? @ -No Was critical care preformed (if so, how long)? @ -No Were there social determinants of health that impacted care today? How? (Homelessness, low income, unemployed, alcoholism, drug addiction, transportation, low edu. Level, literacy, decrease access to med. care, senior living, rehab)? @ -No Was there de-escalation of care discussed even if they declined (Discuss DNR or withdrawal of care, Hospice)? DNR status @ -No What co-morbidities impacted this encounter? (DM, HTN, Smoking, COPD, CAD, Cancer, CVA, ARF, Chemo, Hep., AIDS, mental health diagnosis, sleep apnea, morbid obesity)? @ -Left eye prosthesis Was patient admitted / discharged? Hospital course, mention meds given and route, prescriptions, significant lab abnormalities, going to OR and other pertinent info. @ -72-year-old male with yellowing of his right eye. Patient does not have a left eye for comparison. He has no abdominal pain. No vomiting. No jaundice otherwise. He follows regularly with ophthalmology. I did check laboratory studies, normal CBC, normal platelets, normal PT/INR, normal bilirubins. Patient can follow with his eye doctor. This is likely age-related changes. Undiagnosed new problem with uncertain prognosis? @ -No Drug Therapy requiring intensive monitoring for toxicity (Heparin, Nitro, In sulin, Cardizem)? @ -No Were any procedures done? @ -No Diagnosis/symptom? @ -[Discoloration of the sclera Acute, or Chronic, or Acute on Chronic? @ -[Acute Uncomplicated (without systemic symptoms) or Complicated (systemic symptoms)? @ -default Side effects of treatment? @ -No Exacerbation, Progression, or Severe Exacerbation? @ -No Poses a threat to life or bodily function? How? (Chest pain, [place], [place], pneumonia, PE, COPD, DKA, ARF, appy, cholecystitis, CVA, Diverticulitis, Homicidal, Suicidal, threat to staff... and all critical care pts) @ -No - Lab Data Result diagrams: 07/14/22 11:13 07/14/22 11:13 Lab Results 07/14/22 07/14/22 07/14/22 Range/Units 11:13 11:13 11:13 WBC 5.9 (3.8-10.6) k/uL RBC 4.13 L (4.30-5.90) m/uL Hgb 13.0 (13.0-17.5) gm/dL Hct 38.9 L (39.0-53.0) % MCV 94.2 (80.0-100.0) fL MCH 31.6 (25.0-35.0) pg MCHC 33.5 (31.0-37.0) g/dL RDW 14.6 (11.5-15.5) % Plt Count 266 (150-450) k/uL MPV 7.6 Neutrophils % 46 % Lymphocytes % 42 % Monocytes % 6 % Eosinophils % 1 % Basophils % 0 % Neutrophils # 2.7 (1.3-7.7) k/uL Lymphocytes # 2.5 (1.0-4.8) k/uL Monocytes # 0.4 (0-1.0) k/uL Eosinophils # 0.1 (0-0.7) k/uL Basophils # 0.0 (0-0.2) k/uL PT 9.8 (9.0-12.0) sec INR 0.9 (<1.2) APTT 22.7 (22.0-30.0) sec Sodium 137 (137-145) mmol/L Potassium 4.4 (3.5-5.1) mmol/L Chloride 106 (98-107) mmol/L Carbon Dioxide 25 (22-30) mmol/L Anion Gap 6 mmol/L BUN 19 (9-20) mg/dL Creatinine 0.56 L (0.66-1.25) mg/dL Est GFR (CKD-EPI)AfAm >90 (>60 ml/min/1.73 sqM) Est GFR (CKD-EPI)NonAf >90 (>60 ml/min/1.73 sqM) Glucose 89 (74-99) mg/dL Calcium 9.6 (8.4-10.2) mg/dL Total Bilirubin 0.5 (0.2-1.3) mg/dL Conjugated Bilirubin 0.0 (0.0-0.3) mg/dL Unconjugated Bilirubin 0.4 (0.0-1.1) mg/dL Delta Bilirubin 0.1 (0.0-0.2) mg/dL AST 30 (17-59) U/L ALT 32 (4-49) U/L Alkaline Phosphatase 66 (38-126) U/L Total Protein 6.1 L (6.3-8.2) g/dL Albumin 3.6 (3.5-5.0) g/dL Disposition Clinical Impression: Scleral discoloration Disposition: HOME SELF-CARE Condition: Good Is patient prescribed a controlled substance at d/c from ED?: No Referrals: Vu Cui DO [Primary Care Provider] - 1-2 days Quirino Seymour MD [STAFF PHYSICIAN] - 1-2 days Time of Disposition: 12:12
[2022-07-14 11:27] LABS: Basophils % (A) 0 %; Eosinophils # (A) 0.1 k/uL (0-0.7); Eosinophils % (A) 1 %; HCT 38.9 % (39.0-53.0); Lymphocytes # (A) 2.5 k/uL (1.0-4.8); Lymphocytes % (A) 42 %; MCH 31.6 pg (25.0-35.0); MCHC 33.5 g/dL (31.0-37.0); MCV 94.2 fL (80.0-100.0); Mean Platelet Volume 7.6; Monocytes # (A) 0.4 k/uL (0-1.0); Monocytes % (A) 6 %; Neutrophils # (A) 2.7 k/uL (1.3-7.7); Neutrophils % (A) 46 %; Platelet Count 266 k/uL (150-450); RBC 4.13 m/uL (4.30-5.90); RDW 14.6 % (11.5-15.5); WBC 5.9 k/uL (3.8-10.6)
[2022-07-14 11:37] LABS: ALT 32 U/L (4-49); AST 30 U/L (17-59); African American GFR (CKD) >90 (>60 ml/min/1.73 sqM); Albumin 3.6 g/dL (3.5-5.0); Alkaline Phosphatase 66 U/L (38-126); Anion Gap 6 mmol/L; Bilirubin, Delta 0.1 mg/dL (0.0-0.2); Bilirubin,Unconjugated 0.4 mg/dL (0.0-1.1); Blood Urea Nitrogen 19 mg/dL (9-20); Calcium 9.6 mg/dL (8.4-10.2); Carbon Dioxide 25 mmol/L (22-30); Chloride 106 mmol/L (98-107); Glucose 89 mg/dL (74-99); Non-African American GFR(CKD) >90 (>60 ml/min/1.73 sqM); Potassium 4.4 mmol/L (3.5-5.1); Sodium 137 mmol/L (137-145); Total Bilirubin 0.5 mg/dL (0.2-1.3); Total Protein 6.1 g/dL (6.3-8.2)
[2022-07-14 12:00] LABS: INR 0.9 (<1.2); Partial Thromboplastin Time 22.7 sec (22.0-30.0); Prothrombin Time 9.8 sec (9.0-12.0)
[2022-07-14 12:25] VITALS: BP 134/73; PULSE 54; RESP 16; TEMP 97.6
== END 2022-07-14 12:24 | disposition home or self-care (01) ==
LOC: EC 10:18
DX: H15.89 Other disorders of sclera (principal); I10 Essential (primary) hypertension; E07.9 Disorder of thyroid, unspecified; F41.9 Anxiety disorder, unspecified; Z79.82 Long term (current) use of aspirin; Z79.890 Hormone replacement therapy; Z79.899 Other long term (current) drug therapy; Z87.891 Personal history of nicotine dependence; Z88.5 Allergy status to narcotic agent
CPT/HCPCS: 36415; 80053; 82248; 85025; 85610; 85730; 99283

== ENCOUNTER → 2022-08-20 | Outpatient (CLI) | payer MEDICARE, OTHER ==
--- NOTE | 2022-08-21 08:29 | MR ---
EXAMINATION TYPE: MR shoulder RT wo con DATE OF EXAM: 08/20/2022 4:17 PM COMPARISON: NONE HISTORY: Right shoulder pain and limited range of motion. TECHNIQUE: Multiplanar multispin echo imaging of the right shoulder was performed. FINDINGS: Rotator cuff : There has been prior rotator cuff repair. The repaired rotator cuff demonstrates compl ete retracted supraspinatus tendon tear at this time with fluid filled gap of nearly 3.3 cm. There is partial tear of the infraspinatus tendon. Subscapularis tendon demonstrates tendinosis. Elevation of the humeral head relative to the central glenoid axis. Bursa: There is evidence of bursal thickening with the moderate joint effusion seen. Musculature: There is no muscular tear, contusion, or atrophy. Acromioclavicular joint : Postsurgical changes about the acromion. Moderate AC joint arthropathy. Osseous structures : Bony spur formation about the humeral head. No evidence for fracture or bony kimberly tructive process. Long biceps tendon : The biceps tendon is normally situated within the bicipital groove. No complete or partial biceps tendon tear is present. Glenohumeral Joint fluid : Moderate glenohumeral joint fluid noted. Cartilage and Bone : Marked narrowing glenohumeral joint space with subchondral sclerosis. Labrum : There are no SLAP or soft tissue Bankart lesions. No paralabral cysts are seen. OTHER FINDINGS : Fluid collection adjacent to the coracoid may reflect ganglion cyst measuring 3.6 x 1.6 cm. IMPRESSION: 1. Anterior anterior superior glenoid labrum. Full-thickness retracted tear supraspinatus tendon with chronic elevation humeral head relative to the central glenoid glenoid axis. Prior surgical interven tion of rotator cuff repair. 2. Bursal thickening with moderate joint effusion. Suspect subcoracoid ganglion cyst.
== END | disposition home or self-care (01) ==
LOC: RADMRIMAIN 15:28
PROVIDERS: ATTEND Family Medicine
DX: M75.111 Incomplete rotator cuff tear or rupture of right shoulder, not specified as traumatic (principal); M24.811 Other specific joint derangements of right shoulder, not elsewhere classified; M25.411 Effusion, right shoulder

== ENCOUNTER 2023-04-19 08:02 | Day surgery (SDC) | payer MEDICARE, OTHER ==
[~2023-04-19 08:02] MED LIST changes: +LACTATED RINGERS 1,000 ML IV SCH
[2023-04-19] MEDS ORDERED: LACTATED RINGERS 1,000 ML IV ONE (08:21)
[2023-04-19 08:47] VITALS: TEMP 98
[2023-04-19] MEDS ORDERED: LIDOCAINE 1% INJ 10MG/ML (20 ML MDV) ONE (08:49)
[2023-04-19] MEDS ORDERED: PROPOFOL 10 MG/ML 20 ML VIAL IV ONE (08:49)
--- NOTE | 2023-04-19 08:52 | P.GSHP ---
History of Present Illness H&P Date: 04/19/23 Chief Complaint: History of polyps 72-year-old male here for colonoscopy. Last colonoscopy 3 years ago. Patient with multiple ascending colon polyps. No bowel complaints. Past Medical History Past Medical History: Hypertension, Prostate Disorder, Thyroid Disorder, Vascular Disorder Additional Past Medical History / Comment(s): chronic back pain History of Any Multi-Drug Resistant Organisms: None Reported Past Surgical History: Back Surgery, Heart Catheterization, Orthopedic Surgery Additional Past Surgical History / Comment(s): left eye removed, evans knees arthroscopy, evans shoulder rotator sx rt leg angioplasty on rt leg back surgery x8 Past Anesthesia/Blood Transfusion Reactions: Previous Problems w/ Anesthesia Additional Past Anesthesia/Blood Transfusion Reaction / Comment(s): states has woke up during surgery Smoking Status: Former smoker - Past Family History Brother(s) Family Medical History: Cancer Additional Family Medical History / Comment(s): brain cancer, prostate cancer Father Family Medical History: CVA/TIA Additional Family Medical History / Comment(s): pts grandfather = colon cancer Mother Family Medical History: Renal Disease Medications and Allergies Home Medications Medication Instructions Recorded Confirmed Type Aspirin [Adult Low Dose Aspirin EC] 81 mg PO DAILY 07/29/16 04/14/23 History Levothyroxine Sodium [Synthroid] 12.5 mcg PO DAILY 07/29/16 04/14/23 History Tamsulosin HCl [Flomax] 0.4 mg PO DAILY 07/29/16 04/14/23 History amLODIPine BESYLATE/BENAZEPRIL 1 cap PO DAILY 07/29/16 04/14/23 History [Lotrel 10-40 mg Capsule] diazePAM [Valium] 10 mg PO QID PRN 07/29/16 04/14/23 History Atorvastatin [Lipitor] 40 mg PO HS 08/29/20 04/14/23 History Finasteride [Proscar] 5 mg PO DAILY 08/04/21 04/14/23 History Clopidogrel [Plavix] 75 mg PO DAILY 90 Days #90 tablet 05/28/22 04/14/23 Rx Docusate [Colace] 100 mg PO BID 07/14/22 04/14/23 History HYDROcodone/APAP 5-325MG [[place] 1 tab PO TID PRN 07/14/22 04/14/23 History 5-325] Ondansetron Odt [Zofran Odt] 4 mg PO Q6H PRN 07/14/22 04/14/23 History Allergies Allergy/AdvReac Type Severity Reaction Status Date / Time morphine Allergy Itching Verified 04/14/23 09:32 Surgical - Exam Vital Signs Temp Pulse Resp BP Pulse Ox 98 F 114 H 18 138/63 98 04/19/23 08:20 04/19/23 08:20 04/19/23 08:20 04/19/23 08:20 04/19/23 08:20 Physical exam: General: Well-developed, well-nourished HEENT: Normocephalic, sclerae nonicteric Abdomen: Nontender, nondistended Extremities: No edema Neuro: Alert and oriented Assessment and Plan (1) Colon polyps Narrative/Plan: Will proceed with colonoscopy at this time. Current Visit: Yes Status: Acute Code(s): K63.5 - POLYP OF COLON SNOMED Code(s): 71697709
--- NOTE | 2023-04-19 09:13 | P.PCN ---
Date of Procedure: 04/19/23 Procedure(s) Performed: PREOPERATIVE DIAGNOSIS: Colon polyps POSTOPERATIVE DIAGNOSIS: Ascending and hepatic flexure polyps x 6, sigmoid colon polyp, diverticulosis PROCEDURE: Colonoscopy with snare polypectomy ANESTHESIA: MAC SURGEON: Praveen Craven M.D. SPECIMENS: Polyps ENDOSCOPIC PROCEDURE: The patient was placed on the endoscopy table in the left decubitus position. The Olympus colonoscope was inserted into the anus and passed under direct visualization to the base of the cecum. The appendiceal orifice was visualized. From that point the scope was slowly withdrawn inspecting all surfaces carefully. There were no neoplastic inflammatory or polypoid lesions throughout the cecum. In the ascending and hepatic flexure region there were 6 polyps in total. These were all 1 cm or less in size. These were all removed using the snare with cautery technique. The transverse and descending colon appeared normal. In the sigmoid colon another small polyp was seen and removed using the snare with cautery technique. The rectum was normal. The patient had moderate diverticulosis throughout the colon. Digital rectal examination was normal. The patient was taken to the recovery room in stable condition per anesthesia guidelines. RECOMMENDATIONS: Resume diet. Repeat colonoscopy 2 years.
[2023-04-19 09:47] VITALS: BP 138/77; PULSE 66; RESP 17
== END 2023-04-19 09:59 | disposition home or self-care (01) ==
LOC: ORWHC2ENDO 08:02
PROVIDERS: ATTEND Surgery
DX: Z12.11 Encounter for screening for malignant neoplasm of colon (principal); D12.2 Benign neoplasm of ascending colon; D12.3 Benign neoplasm of transverse colon; D12.5 Benign neoplasm of sigmoid colon; K57.30 Diverticulosis of large intestine without perforation or abscess without bleeding; I10 Essential (primary) hypertension; E07.9 Disorder of thyroid, unspecified; N40.0 Benign prostatic hyperplasia without lower urinary tract symptoms; F41.9 Anxiety disorder, unspecified; Z87.891 Personal history of nicotine dependence; Z79.890 Hormone replacement therapy; Z79.82 Long term (current) use of aspirin; Z79.02 Long term (current) use of antithrombotics/antiplatelets; Z79.899 Other long term (current) drug therapy; Z88.5 Allergy status to narcotic agent
CPT/HCPCS: 45385; J2001; J2704; 88305

== ENCOUNTER → 2023-05-25 | Outpatient (CLI) | payer MEDICARE, OTHER ==
[2023-05-25 11:28] LABS: INR 0.9 (<1.2); Partial Thromboplastin Time 23.4 sec (22.0-30.0); Prothrombin Time 10.2 sec (10.0-12.5)
[2023-05-25 17:35] LABS: Basophils # (A) 0.03 X 10*3/uL (0.00-0.10); Basophils % (A) 0.5 %; Eosinophils # (A) 0.12 X 10*3/uL (0.04-0.35); HCT 43.7 % (39.6-50.0); HGB 14.3 g/dL (13.0-17.0); Lymphocytes # (A) 2.66 X 10*3/uL (0.90-5.00); MCH 32.4 pg (27.0-32.0); MCHC 32.7 g/dL (32.0-37.0); MCV 98.9 FL (80.0-97.0); Mean Platelet Volume 10.2 FL (9.5-12.2); Monocytes # (A) 0.51 X 10*3/uL (0.20-1.00); Monocytes % (A) 8.6 %; NRBC Per 100 WBC 0 X 10*3/uL (0.00-0.01); Neutrophils # (A) 2.58 X 10*3/uL (1.80-7.70); Neutrophils % (A) 43.7 %; Platelet Count 275 X 10*3/uL (140-440); RBC 4.42 X 10*6/uL (4.40-5.60); RDW 13.2 % (11.5-14.5); WBC 5.91 X 10*3/uL (4.50-10.00)
[2023-05-25 17:53] LABS: Blood Urea Nitrogen 20.1 mg/dL (9.0-27.0); Glucose 82 mg/dL (70-110)
[2023-05-25 17:54] LABS: ALT 37 U/L (10-49); AST 31 U/L (14-35); Albumin 4.1 g/dL (3.8-4.9); Albumin/Globulin Ratio 1.78 Ratio (1.60-3.17); Alkaline Phosphatase 45 U/L (41-126); Calcium 9.8 mg/dL (8.7-10.3); Carbon Dioxide 22.5 mmol/L (21.6-31.8); Chloride 106 mmol/L (96-109); Globulin 2.3 g/dL (1.6-3.3); Potassium 4.3 mmol/L (3.5-5.5); Sodium 140 mmol/L (135-145); Total Bilirubin 0.4 mg/dL (0.3-1.2); Total Protein 6.4 g/dL (6.2-8.2)
== END | disposition home or self-care (01) ==
LOC: LABWHC1 10:20
PROVIDERS: ATTEND Orthopaedic Surgery
DX: M25.811 Other specified joint disorders, right shoulder (principal)
CPT/HCPCS: 36415; 80053; 83036; 85025; 85610; 85730; 86850; 86900; 86901; 87070

== ENCOUNTER → 2023-10-25 | Outpatient (CLI) | payer MEDICARE, OTHER | END | disposition home or self-care (01) | LOC: LABPRL 12:34 | PROVIDERS: ATTEND Family Medicine | DX: E78.5 Hyperlipidemia, unspecified (principal) | CPT/HCPCS: 80053; 80061 ==

== ENCOUNTER → 2024-02-20 | Outpatient (CLI) | payer MEDICARE, OTHER ==
--- NOTE | 2024-02-20 12:04 | CT ---
EXAMINATION TYPE: CT abdomen pelvis wo con DATE OF EXAM: 02/20/2024 9:01 AM COMPARISON: 03/05/2010 CLINICAL INDICATION: Male, 73 years old with history of R10.32 LLQ pain, LLQ pain, possible inguinal hernia TECHNIQUE: Axial images with sagittal coronal reformats. Examination of the solid and hollow viscera is limited given the lack of contrast. CT DLP: 346.7 mGycm, Automated exposure control for dose reduction was used. FINDINGS: LUNG BASES: No evidence for nodule. No evidence for infiltrate. There is evidence of cardiomegaly. Sm all pericardial effusion noted with maximal thickness of 8 mm. LIVER/GB: Several cystic lesions throughout the liver measuring up to 5 cm in greatest dimension. The gallbladder is surgically absent. PANCREAS: No pancreatic mass identified. No inflammatory process seen. SPLEEN: No evidence for splenomegaly. No intrasplenic lesions seen. ADRENALS: No adrenal nodules identified. No evidence for thickening. KIDNEYS: Hypoattenuating lesion mid to upper pole right kidney measuring 2 cm could reflect a cyst. 2 mm nonobstructing calculus lower pole left kidney. No hydronephrosis. BOWEL: Appendix has a normal appearance. No evidence of bowel obstruction. No inflammatory process. S igmoid diverticulosis without diverticulitis. Lymph nodes: No evidence for adenopathy greater than 1 cm. Abdominal aorta: Atheromatous changes seen. No evidence for aneurysm. Genital organs: No significant abnormality. Other: Small fat-containing inguinal hernias left slightly greater than right. 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 IMPRESSION: 1.Small fat-containing inguinal hernias left slightly greater than right. 2. Multiple hepatic cysts. 3. Cardiomegaly with small pericardial effusion. 4. Sigmoid diverticulosis without diverticulitis. [facility], , 02/20/2024 12:02 PM
== END | disposition home or self-care (01) ==
LOC: RADCTMAIN 06:54
PROVIDERS: ATTEND Family Medicine
DX: K40.90 Unilateral inguinal hernia, without obstruction or gangrene, not specified as recurrent (principal); K57.30 Diverticulosis of large intestine without perforation or abscess without bleeding; I31.39 Other pericardial effusion (noninflammatory); K76.89 Other specified diseases of liver; I51.7 Cardiomegaly
CPT/HCPCS: 74176

== ENCOUNTER → 2024-05-28 | Outpatient (CLI) | payer MEDICARE, OTHER ==
[2024-05-28 15:30] LABS: African American GFR (CKD) >90 (>60 ml/min/1.73 sqM); Blood Urea Nitrogen 21 mg/dL (9-20); Non-African American GFR(CKD) >90 (>60 ml/min/1.73 sqM)
--- NOTE | 2024-05-28 17:01 | CT ---
EXAMINATION TYPE: CT chest w con DATE OF EXAM: 05/28/2024 COMPARISON: NONE CLINICAL INDICATION: Male, 73 years old with history of R91.8 OTHER NONSPECIFIC ABNORMAL FINDING OF L JOSE F, F/u for lung nodule found on CXR. TECHNIQUE: CT scan of the thorax is performed following with IV Contrast, patient injected with 100m l mL of Isovue 300. CT DLP: 358.4 mGycm. Automated Exposure Control for Dose Reduction was Utilized. FINDINGS: LUNGS: The lungs are grossly clear, there is no concerning parenchymal mass or focal consolidation id entified. No greater than 5 mm pulmonary nodules are identified. There is no pleural effusion or pn eumothorax seen. The tracheobronchial tree is patent. HEART: Size within normal limits. Severe three-vessel coronary artery calcifications. Calcification and thickening at level level of the aortic valve MEDIASTINUM: There are no greater than 1 cm hilar or mediastinal lymph nodes. Small to moderate-siz ed anterior inferior pericardial effusion is seen measuring up to 1.3 cm in thickness. Prominent aj n pulmonary artery of 3.1 cm raises concern for underlying pulmonary artery hypertension. Ascending a liat measures 3.8 cm at origin coronal image 35. OTHER: Small degree of bilateral flame-shaped subareolar gynecomastia is seen. Several hypodense lesi ons throughout the liver favors simple thin-walled cyst. Cholecystectomy clips are present. There is small cortical cyst in the right kidney axial image 70. Slight scoliotic curvature is seen. IMPRESSION: 1. No concerning pulmonary nodules or masses. Other findings are noted as detailed above. [facility], , 05/28/2024 4:59 PM
== END | disposition home or self-care (01) ==
LOC: RADCTMAIN 14:48
PROVIDERS: ATTEND Family Medicine
DX: R91.8 Other nonspecific abnormal finding of lung field (principal); I27.21 Secondary pulmonary arterial hypertension; I31.39 Other pericardial effusion (noninflammatory); N28.1 Cyst of kidney, acquired
CPT/HCPCS: 82565; 84520; 71260; 36415; Q9967